=== PATIENT | male | born 1975 | race African-American/Black ===

== ENCOUNTER 2024-10-16 11:26 | Emergency (ER) | payer MEDICAID ==
[~2024-10-16] VITALS: Ht 160 cm; Wt 88.0 kg
[2024-10-16] MEDS ORDERED: LOSA100T25 PO (12:33)
[2024-10-16] MEDS ORDERED: GLIM4TAB42 PO (12:33)
[2024-10-16] MEDS ORDERED: CANA100T OR (12:33)
[2024-10-16] MEDS ORDERED: PROP120C42 PO (12:33)
[2024-10-16] MEDS ORDERED: METF-372 PO (12:33)
--- NOTE | 2024-10-16 12:38 | ED.PDOC ---
History of Present Illness HPI Comments 49-year-old male here today for medication refill. Patient is requesting a refill of his metformin 1000 mg b.i.d., propranolol 120 mg daily, losartan- hydrochlorothiazide 100-25 daily, Invokana 100 mg daily with the breakfast, glimepiride 4 mg daily with lunch. States he is in the process of getting a primary care provider and does not need help with this process. No pain or symptoms. Feels well and is asymptomatic and is strictly here for medication refill. Chief Complaint: High Blood Pressure Time Seen by MD: 11:37 Primary Care Provider: NONE Allergies: Coded Allergies: NO KNOWN ALLERGIES (Unverified , 10/16/24) Home Meds Active Scripts Glimepiride (Glimepiride) 4 Mg Tab, 1 TAB PO DAILY@LUNCH for 30 Days, #30 TAB Prov:HOOD ARMSTRONG MD 10/16/24 Canagliflozin (INVOKANA) 100 Mg Tab, 100 MG OR DAILY@BREAKFAST for 30 Days, #30 TAB Prov:HOOD ARMSTRONG MD 10/16/24 Losartan Potassium & Hydrochlo (Hyzaar) 1 Tab Tab, 1 TAB PO DAILY for 30 Days, #30 TAB Prov:HOOD ARMSTRONG MD 10/16/24 Propranolol HCl (Propranolol Hydrochloride) 120 Mg Cap, 120 MG PO DAILY for 30 Days, #30 CAP Prov:HOOD ARMSTRONG MD 10/16/24 Metformin Hydrochloride (Metformin Hcl) 1,000 Mg Tab, 1 TAB PO BID for 30 Days, #60 TAB 0 Refills Prov:HOOD ARMSTRONG MD 10/16/24 Mode of Arrival: Ambulatory Past Medical History PAST MEDICAL HISTORY: DM, HTN All Other Systems: Reviewed and Negative (Asymptomatic) Physical Exam General Appearance: No Apparent Distress, Normal HEENT: Normal ENT Inspection, Pharynx Normal, TMs Normal Neck: Full Range of Motion, Non-Tender, Normal, Normal Inspection Respiratory: Chest Non-Tender, Lungs Clear, No Accessory Muscle Use, No Respiratory Distress, Normal Breath Sounds Cardiovascular: No Edema, No JVD, No Murmur, No Gallop, Normal Peripheral Pulses, Regular Rate/Rhythm Breast Exam: Deferred Gastrointestinal: No Organomegaly, Non Tender, No Pulsatile Mass, Normal Bowel Sounds, Soft Genitalia: Deferred Pelvic: Deferred Rectal: Deferred Extremities: No calf tenderness, Normal capillary refill, Normal inspection, Normal range of motion, Non-tender, No pedal edema Musculoskeletal : Apperance: Normal Neurologic: Alert, data warehouse developer II-XII nml as Tested, No Motor Deficits, Normal Affect, Normal Mood, No Sensory Deficits Cerebellar Function: NOT DONE Reflexes: NOT DONE Skin: Dry, Normal Color, Warm Lymphatic: No Adenopathy Was a procedure done? Was a procedure done?: No Differential Dx Considerations may include: Medication refill, DKA/HHS, hypertensive emergency X-Ray, Labs, Meds, VS Vital Signs Date Time Temp Pulse Resp B/P (MAP) Pulse Ox O2 Delivery O2 Flow Rate FiO2 10/16/24 11:36 98.7 101 20 150/98 (115) 97 98.7 X-Ray, Labs, Meds, VS Comment 49-year-old male here today for medication refill. Asymptomatic at this time. Point of care sugar 180s. Patient's medications were refilled and sent to his preferred pharmacy. Patient in the process of getting a new primary care provider and does not need assistance with his process. No pain or symptoms. Patient discharged in stable condition and in no distress. Time of 1ST Reevaluation: 12:18 Reevaluation 1ST: Unchanged Patient Education/Counseling: Diagnosis, Treatment, Prognosis, Need For Follow Up Family Education/Counseling: No Family Present SEPSIS Sepsis Screen Date sepsis recognized/suspect: Oct 16, 2024 Time Sepsis recognized/suspect: 1136 Recent Procedure: No On Antibiotic Therapy: No Respiratory Rate >20: No Heart Rate >90: Yes Temp<36 C (96.8 F) or >38.3 C: No SBP <90 or MAP <65 mmHG: No New Acute Mental Status Change: No Is the patient on CPAP, BIPAP,: No Vital Signs Date Time Temp Pulse Resp B/P (MAP) Pulse Ox O2 Delivery O2 Flow Rate FiO2 10/16/24 11:36 98.7 101 20 150/98 (115) 97 98.7 Departure 1 Departure Time of Disposition: 12:37 Impression: Primary Impression: Medication refill Additional Impressions: History of high blood pressure History of diabetes mellitus Disposition: HOME / SELF CARE / HOMELESS Condition: Stable e-Prescriptions Glimepiride (Glimepiride) 4 Mg Tab 1 TAB PO DAILY@LUNCH for 30 Days, #30 TAB Prov: HOOD ARMSTRONG MD 10/16/24 Canagliflozin (INVOKANA) 100 Mg Tab 100 MG OR DAILY@BREAKFAST for 30 Days, #30 TAB Prov: HOOD ARMSTRONG MD 10/16/24 Losartan Potassium & Hydrochlo (Hyzaar) 1 Tab Tab 1 TAB PO DAILY for 30 Days, #30 TAB Prov: HOOD ARMSTRONG MD 10/16/24 Propranolol HCl (Propranolol Hydrochloride) 120 Mg Cap 120 MG PO DAILY for 30 Days, #30 CAP Prov: HOOD ARMSTRONG MD 10/16/24 Metformin Hydrochloride (Metformin Hcl) 1,000 Mg Tab 1 TAB PO BID for 30 Days, #60 TAB 0 Refills Prov: HOOD ARMSTRONG MD 10/16/24 Critical Care Note Critical Care Time?: No Stability Stability form required: No Heart Score Heart Score: Heart Score Response (Comments) Value History N/A 0 EKG N/A 0 Age N/A 0 Risk Factors N/A 0 Troponin N/A 0 Total 0 HOOD ARMSTRONG MD Oct 16, 2024 12:37
[2024-10-16 13:21] VITALS: BP 144/89; PULSE 99; RESP 18; TEMP 98.8; O2SAT 95
== END 2024-10-16 13:22 | disposition home or self-care (01) ==
LOC: ER 11:26
DX: I10 Essential (primary) hypertension (principal); E11.9 Type 2 diabetes mellitus without complications; Z76.0 Encounter for issue of repeat prescription; Z79.899 Other long term (current) drug therapy; Z79.84 Long term (current) use of oral hypoglycemic drugs
CPT/HCPCS: 82947